=== PATIENT | female | born 1950 | race African-American/Black ===

== ENCOUNTER 2020-01-30 22:58 | Emergency (ER) | payer OTHER ==
[~2020-01-30] VITALS: Ht 160 cm; Wt 68.0 kg
[~2020-01-30 22:58] MED LIST: ABILIFY10 MG; B-100 COMPLEX1 EAC1 PO; BACTRIM DS TAB1 EACH PO; CYMBALTA20 MG; HYDROCODON-ACE1 EAC1 PO; NORCO 5-325 TA1 EACH PO; TRAZODONE 150150 M1 PO; ULTRAM 50MG TAB50 MG PO; XANAX XR2 MG PO
[2020-01-30 23:37] LABS: HEMATOCRIT 37.8 % (37.0-47.0); HEMOGLOBIN 12.4 gm/dL (12.0-15.0); MCH 28.4 pg (26.0-34.0); MCHC 32.9 g/dL (28.0-37.0); MCV 86.2 fL (80.0-100.0); RBC 4.38 mil/uL (4.20-5.00); RDW 14.6 % (10.5-14.5); WBC 6.4 thou/uL (4.0-11.0)
[2020-01-30 23:49] LABS: ANION GAP 12 mmol/L (7-16); BUN 7 mg/dL (7-18); CALCIUM 8.7 mg/dL (8.5-10.1); CHLORIDE 107 mmol/L (98-107); CO2 25 mmol/L (21-32); CREATININE 0.8 mg/dL (0.6-1.0); GLUCOSE 96 mg/dL (74-106); POTASSIUM 3.7 mmol/L (3.5-5.1); SODIUM 144 mmol/L (136-145)
[2020-01-30 23:57] LABS: TROPONIN-I <0.06 ng/mL (<0.06)
[2020-01-31 00:42] VITALS: BP 125/69
--- NOTE | 2020-01-31 07:21 | EKG ---
[address] [place] [address] ELECTROCARDIOGRAM REPORT Name: SONNY LAI Room #: DEP [facility]#: [id number] Admission: 01/30/20 Attend Phys: Discharge: 01/31/20 Date of : 54 Report #: [id number] [facility] ED Test Date: 2020-01-30 Test Time: 23:08:13 Pat Name: SONNY LAI Department: Room: Gender: F Videotape Editor: LAUREL : 1950 Requested By: Herman Hardy Order Number: [id number] MD: Rafita Owen Measurements Intervals [place] Rate: 74 P: 22 [place]: 135 QRS: -7 QRSD: 75 T: 72 QT: 433 QTc: 481 Interpretive Statements Sinus rhythm Inferior infarct, old Compared to ECG 08/24/2010 14:12:21 Myocardial infarct finding now present Electronically Signed On 01-31-2020 7:21:17 TABLET MAKING MACHINE OPERATOR by Rafita Owen [email or web address] <ELECTRONICALLY SIGNED> By: Rafita Owen MD, [facility] 01/31/20 0721 [id number] [id number] Rafita Owen MD, FACC /EPI
== END 2020-01-31 00:45 | disposition home or self-care (01) ==
LOC: ER 22:58
PROVIDERS: Emergency Medicine
DX: R07.89 Other chest pain (principal); I48.91 Unspecified atrial fibrillation; F32.9 Major depressive disorder, single episode, unspecified; Z98.61 Coronary angioplasty status; Z90.89 Acquired absence of other organs; Z90.49 Acquired absence of other specified parts of digestive tract; Z79.899 Other long term (current) drug therapy; Z88.4 Allergy status to anesthetic agent; Z88.6 Allergy status to analgesic agent; Z88.5 Allergy status to narcotic agent